=== PATIENT | female | born 1945 | race Caucasian/White ===

== ENCOUNTER 2020-10-23 13:15 | Outpatient (CLI) | payer MEDICARE, OTHER | END 2020-10-23 13:16 | disposition home or self-care (01) | LOC: BICULT 13:15 | PROVIDERS: ATTEND Physician Assistant Medical | DX: I85.00 Esophageal varices without bleeding (principal); K70.30 Alcoholic cirrhosis of liver without ascites; K80.20 Calculus of gallbladder without cholecystitis without obstruction; K59.09 Other constipation; R14.0 Abdominal distension (gaseous); R18.8 Other ascites; K86.2 Cyst of pancreas; R16.1 Splenomegaly, not elsewhere classified | CPT/HCPCS: 76705 ==